=== PATIENT | female | born 1970 | race Caucasian/White ===

== ENCOUNTER → 2020-06-25 | Outpatient (CLI) | payer OTHER ==
[2020-06-26 10:15] LABS: RHEUMATOID ARTHRITIS FACTOR <10.0 IU/mL (0.0-13.9)
[2020-06-27 00:11] LABS: CCP ANTIBODIES IGG/IGA 5 units (0-19)
== END ==
LOC: LAB 11:59
PROVIDERS: Nurse Practitioner Family
DX: M25.511 Pain in right shoulder (principal); D89.9 Disorder involving the immune mechanism, unspecified; M25.50 Pain in unspecified joint
CPT/HCPCS: 36415; 73030; 82550; 83520; 85652; 86140; 86200; 86431